=== PATIENT | female | born 2000 | race Caucasian/White ===

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

== ENCOUNTER → 2022-11-28 | Emergency (ER) | payer OTHER ==
[~2022-11-28] VITALS: Ht 167.6 cm; Wt 52.2 kg
[~2022-11-28] MED LIST changes: +LEXAPRO5 MG PO; +PERCOGESIC EXT1 EACH PO; +VISTARIL50 MG PO
== END | disposition home or self-care (01) ==
LOC: ER 09:13
DX: R53.81 Other malaise (principal); M94.0 Chondrocostal junction syndrome [Tietze]; F41.8 Other specified anxiety disorders; G43.809 Other migraine, not intractable, without status migrainosus